=== PATIENT | male | born 1995 | race Caucasian/White ===

== ENCOUNTER 2017-09-06 10:29 | Inpatient (IN) | payer MEDICARE ==
--- NOTE | 2017-09-06 14:00 | History and Physical Report ---
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 Pt was found to have accelerated hypertension as was sent to [facility] for evaluation. Pt seen and evaluated upon arrival and was found to have ESRD with Fluid overload as well as hypertensive emergency. Pt treated with IV antihypertensive therapy and serial blood pressure monitoring. Pt denies fever, chills, headache, CP, Palpitations, NVD, syncope,trauma or recent ill contacts. Pt acknowledges noncompliance with renal diet. Nephrology consulted for urgent dialysis. Past History Past Medical History: ESRD, hypertension Past Surgical History: Other (right chest permacath) Social history: single. denies: smoking, alcohol abuse Family history: hypertension Medications and Allergies Allergies Allergy/AdvReac Type Severity Reaction Status Date / Time No Known Allergies Allergy Unverified 09/06/17 10:57 Home Medications Medication Instructions Recorded Confirmed Last Taken Type B Complex 11/Folic/C/Biot/Zinc 1 each PO DAILY 09/06/17 09/06/17 Unknown History [Dialyvite with Zinc Tablet] Calcitriol [Rocaltrol] 0.25 mcg PO DAILY 09/06/17 09/06/17 Unknown History Calcium Acetate [Phoslo] 1,334 mg PO TID 09/06/17 09/06/17 Unknown History Carvedilol [Coreg] 25 mg PO BID 09/06/17 09/06/17 Unknown History Docusate Sodium [Colace CAP] 100 mg PO DAILY 09/06/17 09/06/17 Unknown History Ergocalciferol [Vitamin D2] 1 cap PO QWEEK 09/06/17 09/06/17 Unknown History Omeprazole Magnesium [PriLOSEC Otc] 40 mg PO QHS 09/06/17 09/06/17 Unknown History Ondansetron [Zofran TAB] 4 mg PO Q8HR PRN 09/06/17 09/06/17 Unknown History Sodium Bicarbonate 1,300 mg PO BID 09/06/17 09/06/17 Unknown History amLODIPine [Norvasc] 10 mg PO DAILY 09/06/17 09/06/17 Unknown History cloNIDine [Catapres] 0.2 mg PO BID 09/06/17 09/06/17 Unknown History Labetalol [Normodyne TAB] 400 mg PO TID #90 tablet 09/08/17 Unknown Rx Minoxidil [Loniten] 5 mg PO BID #60 tablet 09/08/17 Unknown Rx Review of Systems Constitutional: other (high blood pressure), no weight loss, no weight gain, no fever, no chills Ears, nose, mouth and throat: no ear pain, no ear discharge, no tinnitis, no decreased hearing, no nose pain, no nasal congestion Cardiovascular: no chest pain, no orthopnea, no palpitations, no rapid/ irregular heart beat, no edema, no syncope, no lightheadedness Respiratory: no cough, no cough with sputum, no excessive sputum, no hemoptysis , no shortness of breath Gastrointestinal: no nausea, no vomiting, no diarrhea, no constipation Genitourinary Male: no dysuria, no hematuria, no flank pain, no discharge, no urinary frequency, no urinary hesitancy Rectal: no pain, no incontinence, no bleeding Musculoskeletal: no neck stiffness, no neck pain, no shooting arm pain Integumentary: no rash, no pruritis, no redness, no sores, no wounds, no jaundice Psychiatric: no anxiety, no memory loss, no change in sleep habits, no sleep disturbances, no insomnia, no hypersomnia, no change in appetite, no change in libido Endocrine: no cold intolerance, no heat intolerance, no polyphagia, no excessive thirst Hematologic/Lymphatic: no easy bruising, no easy bleeding Allergic/Immunologic: no urticaria, no allergic rhinitis Exam - Constitutional Vitals: Temp Pulse Resp BP Pulse Ox 98.0 F 64 20 170/106 100 09/06/17 12:47 09/06/17 13:09 09/06/17 12:47 09/06/17 13:09 09/06/17 12:47 General appearance: Present: mild distress - EENT Eyes: Present: PERRL ENT: hearing intact, clear oral mucosa - Neck Neck: Present: supple, normal ROM - Respiratory Respiratory effort: normal Respiratory: bilateral: diminished - Cardiovascular Heart Sounds: Present: S1 & S2. Absent: rub, click - Extremities Extremities: pulses symmetrical, No edema Peripheral Pulses: within normal limits - Abdominal General gastrointestinal: Present: soft, non-tender, non-distended, normal bowel sounds Male genitourinary: Present: normal - Integumentary Integumentary: Present: clear, warm, dry - Musculoskeletal Musculoskeletal: gait normal, strength equal bilaterally - Psychiatric Psychiatric: appropriate mood/affect, intact judgment & insight - Neurologic Neurologic: CNII-XII intact, moves all extremities Results - Labs CBC & Chem 7: 09/06/17 15:14 09/08/17 06:02 Assessment and Plan - Patient Problems (1) ESRD (end stage renal disease) on dialysis Status: Acute Plan to address problem: Monitor uop q shift, Strict I/O, Renal diet, nephrology consulted for dialysis, CMP, (2) Fluid overload Status: Acute Plan to address problem: Strict I/O, monitor uop q shift, supportive care, dialysis as per renal team. (3) Hypertensive emergency Status: Acute Plan to address problem: Monitor bp q shift, IV hydralazine prn, continum medical management, resume home medication (4) DVT prophylaxis Status: Acute
[2017-09-06] MEDS ORDERED: PROVENTIL IH PRN (14:01)
[2017-09-06] MEDS ORDERED: TYLENOL PO PRN (14:01)
[2017-09-06] MEDS ORDERED: ZOFRAN IV PRN (14:01)
[2017-09-06] MEDS ORDERED: ZOFRAN PO PRN (14:04)
[2017-09-06] MEDS: APRESOLINE IV PRN (15:40)
--- NOTE | 2017-09-06 15:43 | Consultation ---
History of Present Illness - Reason for Consult Consult date: 09/06/17 end stage renal disease - History of Present Illness Mr. Reggie Paredes is a 22yo gentleman with ESRD on HD MWF who presented to dialysis today for routine treatment. Patient's SBP>200 which did not respond despite Clonidine x 2. He has been admitted for further management. Patient is seen on dialysis. He denies chest pain, SOB, headache, nausea, vomiting. Past History Past Medical History: ESRD, hypertension Past Surgical History: Other (right chest permacath) Social history: single. denies: smoking, alcohol abuse Family history: hypertension Medications and Allergies Allergies Allergy/AdvReac Type Severity Reaction Status Date / Time No Known Allergies Allergy Unverified 09/06/17 10:57 Home Medications Medication Instructions Recorded Confirmed Last Taken Type B Complex 11/Folic/C/Biot/Zinc 1 each PO DAILY 09/06/17 09/06/17 Unknown History [Dialyvite with Zinc Tablet] Calcitriol [Rocaltrol] 0.25 mcg PO DAILY 09/06/17 09/06/17 Unknown History Calcium Acetate [Phoslo] 1,334 mg PO TID 09/06/17 09/06/17 Unknown History Carvedilol [Coreg] 25 mg PO BID 09/06/17 09/06/17 Unknown History Docusate Sodium [Colace] 100 mg PO DAILY 09/06/17 09/06/17 Unknown History Ergocalciferol [Vitamin D2] 1 cap PO QWEEK 09/06/17 09/06/17 Unknown History Labetalol HCl 300 mg PO BID 09/06/17 09/06/17 Unknown History Omeprazole Magnesium [PriLOSEC Otc] 40 mg PO QHS 09/06/17 09/06/17 Unknown History Ondansetron [Zofran TAB] 4 mg PO Q8HR PRN 09/06/17 09/06/17 Unknown History Sodium Bicarbonate 1,300 mg PO BID 09/06/17 09/06/17 Unknown History amLODIPine [Norvasc] 10 mg PO DAILY 09/06/17 09/06/17 Unknown History cloNIDine [Catapres] 0.2 mg PO BID 09/06/17 09/06/17 Unknown History Active Meds: Active Medications Acetaminophen (Tylenol) 650 mg PO Q4H PRN PRN Reason: Pain MILD(1-3)/Fever >100.5/DELAROSA Albuterol (Proventil) 2.5 mg IH Q3HRT PRN PRN Reason: Shortness Of Breath Amlodipine Besylate (Norvasc) 10 mg PO DAILY TASHIA Calcitriol (Rocaltrol) 0.25 mcg PO DAILY TASHIA Calcium Acetate (Phoslo) 1,334 mg PO TIDWM TASHIA Carvedilol (Coreg) 25 mg PO BID TASHIA Clonidine HCl (Catapres) 0.2 mg PO BID TASHIA Docusate Sodium (Colace) 100 mg PO DAILY TASHIA Ergocalciferol (Vitamin D2) 50,000 unit PO QWEEK TASHIA Hydralazine HCl (Apresoline) 10 mg IV Q6HR PRN PRN Reason: Hypertension Labetalol HCl (Normodyne) 300 mg PO BID TASHIA Multivit/Ca Carb/B Cmplx/FA/Prenat (Renal Caps) 1 cap PO QDAY TASHIA Ondansetron HCl (Zofran) 4 mg IV Q8H PRN PRN Reason: N/V unrelieved by Reglan Ondansetron HCl (Zofran) 4 mg PO Q8HR PRN PRN Reason: Nausea Pantoprazole Sodium (Protonix) 40 mg PO QHS TASHIA Sodium Bicarbonate (Sodium Bicarbonate) 1,300 mg PO BID TASHIA Review of Systems All systems: negative Exam - Vital Signs Vital signs: Vital Signs Temp Pulse Resp BP Pulse Ox 98.0 F 62 20 212/134 100 09/06/17 12:47 09/06/17 12:47 09/06/17 12:47 09/06/17 12:47 09/06/17 12:47 - General Appearance General appearance: well-developed, well-nourished EENT: ATNC Respiratory: Clear to Ascultation Heart: regular, S1S2 Gastrointestinal: Present: normal. Absent: tenderness, distended Integumentary: no rash Neurologic: no focal deficit Musculoskeletal: Present: other (no edema) Psychiatric: cooperative Assessment and Plan Impression: * ESRD * Accelerated hypertension * Anemia secondary to ESRD * Secondary hyperparathyroidism Plan: * Hemodialysis today. Continue HD MWF * Continue antiHTN medications * Compliance w/ meds questionable * Epogen TIW prn * Renal diet * Binders with meals
[2017-09-06 16:09] LABS: Basophils # (Auto) 0.1 K/mm3 (0.0-0.1); Basophils % (Auto) 0.9 % (0.0-1.8); Eosinophils # (Auto) 0.1 K/mm3 (0.0-0.4); Eosinophils % (Auto) 1.8 % (0.0-4.3); Hematocrit 35.9 % (35.5-45.6); Lymphocytes # (Auto) 0.9 K/mm3 (1.2-5.4); Lymphocytes % (Auto) 13.9 % (13.4-35.0); Mean Corpuscular HGB Conc 33 % (32-34); Mean Corpuscular Hemoglobin 31 pg (28-32); Mean Corpuscular Volume 93 fl (84-94); Monocytes # (Auto) 0.4 K/mm3 (0.0-0.8); Monocytes % (Auto) 6.8 % (0.0-7.3); Platelet Count 189 K/mm3 (140-440); Red Blood Count 3.86 M/mm3 (3.65-5.03); Red Cell Distribution Width 15.1 % (13.2-15.2)
[2017-09-06 16:28] LABS: Albumin 4.7 g/dL (3.9-5); Calcium 8.5 mg/dL (8.4-10.2)
[2017-09-06] MEDS ORDERED: NACL 0.9% 100 ML IV PRN (18:07)
[2017-09-06] MEDS: HEPARIN IV PRN (19:06)
[2017-09-06] MEDS: CATAPRES PO SCH ×2 (19:19→22:04)
[2017-09-06] MEDS: PHOSLO PO SCH (19:19)
[2017-09-06] MEDS: NORVASC PO SCH (19:19)
[2017-09-06] MEDS: COREG PO SCH ×2 (19:19→22:04)
[2017-09-06] MEDS ORDERED: SODIUM BICARBONATE PO SCH (22:00)
[2017-09-06] MEDS ORDERED: NORMODYNE PO SCH (22:00)
[2017-09-06] MEDS ORDERED: NON-FORMULARY (Omeprazole Magnesium [Prilosec Otc] 40 MG) PO SCH (22:00)
[2017-09-06] MEDS ORDERED: NON-FORMULARY (Labetalol Hcl [Labetalol Hcl] 300 MG) PO SCH (22:00)
[2017-09-06] MEDS: PROTONIX PO SCH (22:04)
[2017-09-07] MEDS: PHOSLO PO SCH ×3 (08:19→17:38)
--- NOTE | 2017-09-07 09:12 | Progress Note ---
Subjective Interval history: Patient was seen today for follow-up, regarding multiple renal related issues Events of 24 hours were noted Patient denies any complaints of chest pain pressure or shortness of breath Interdisciplinary Notes were also reviewed from past 24 hours Vitals labs intake output medications: Reviewed Past medical history: Reviewed Allergies: Reviewed Social history: Reviewed Family history: Reviewed Physical examination Gen.: No acute distress HEENT: Mild pallor nor icterus no uremic order Neck: Supple without any mass or JVD Chest: Clear to auscultation anteriorly Heart: Regular rate and rhythm S1 and S2 heard Abdomen: Soft nontender no suprapubic fullness no masses no renal bruit Extremity: Edema , no peripheral cyanosis Skin: No petechial rashes dry skin Assessment and plan End-stage renal disease: Currently on maintenance hemodialysis Accelerated hypertension: Requires adjustment of medication discontinue duplicate beta delbert Increase the dose of labetalol add minoxidil discontinue clonidine as patient is young and this may have several side effects that he may not like Monitor blood pressure patient needs to modify his diet lifestyle, 3 Hyperkalemia: Would avoid any form of PADMINI inhibitor angiotensin receptor delbert due to history of noncompliance with diet lifestyle Patient is high risk in terms of adverse outcome due to uncontrolled hypertension and should be discharged when his blood pressure is consistently under 150 Some of it is also resulting from noncompliance we'll check aldosterone and plasma renin level today Anemia in end-stage renal disease: To monitor and follow Secondary hyperparathyroidism check phosphorus and PTH level history of poor compliance with diet lifestyle eating fast food Had a detailed discussion with patient about renal care plan, Renal prognosis currently is guarded Significant lab finding were discussed with patient unexplained and simple Congolese Patient does have good understanding about renal related issues We'll continue to follow and make recommendation from renal standpoint Objective - Vital Signs Vital signs: Vital Signs - 12hr 09/06/17 09/06/17 09/06/17 21:52 22:00 22:03 Temperature Pulse Rate 85 Respiratory 20 Rate Blood Pressure 178/121 O2 Sat by Pulse 100 99 Oximetry 09/06/17 09/07/17 09/07/17 22:04 00:32 04:08 Temperature 98.3 F 98.1 F Pulse Rate 85 69 70 Respiratory 20 18 Rate Blood Pressure 178/121 147/102 139/88 O2 Sat by Pulse 99 99 Oximetry 09/07/17 07:48 Temperature 98.4 F Pulse Rate 84 Respiratory 20 Rate Blood Pressure 142/93 O2 Sat by Pulse 98 Oximetry - Lab 09/06/17 15:14 09/06/17 15:14 Most recent lab results Calcium 8.5 mg/dL (8.4-10.2) 09/06/17 15:14
[2017-09-07] MEDS: ROCALTROL PO SCH (09:57)
[2017-09-07] MEDS: COLACE PO SCH (09:57)
[2017-09-07] MEDS: Renal Caps PO SCH (09:57)
[2017-09-07] MEDS: NORVASC PO SCH (09:58)
[2017-09-07] MEDS ORDERED: NON-FORMULARY (B Complex 11/Folic/C/Biot/Zinc [Dialyvite With Zinc Tablet] 1 EACH) PO SCH (10:00)
[2017-09-07] MEDS ORDERED: LONITEN PO SCH (10:00)
[2017-09-07] MEDS: NORMODYNE PO SCH ×2 (12:43→20:03)
[2017-09-07] MEDS ORDERED: NORMODYNE PO SCH (14:00)
--- NOTE | 2017-09-07 19:32 | Progress Note ---
Assessment and Plan Assessment and plan: --Hypertensive urgency; The patient is moderate control, continue current antihypertensives and when necessary medications --End-stage renal disease; on hemodialysis per schedule Nephrology following --DVT prophylaxis; heparin the new dose Closely monitor the patient and adjust management as needed Plan of care discussed with the patient and the nurse History Interval history: Patient seen and examined medical records reviewed No new events reported by the nursing staff Patient's blood pressure moderate control Receiving hemodialysis per schedule Patient has no new complaints Vital signs reviewed Hospitalist Physical - Constitutional Vitals: Temp Pulse Resp BP Pulse Ox 98.7 F 74 20 148/91 99 09/07/17 11:35 09/07/17 11:35 09/07/17 11:35 09/07/17 12:43 09/07/17 11:35 General appearance: Present: no acute distress, well-nourished - EENT Eyes: Present: PERRL, EOM intact - Neck Neck: Present: supple, normal ROM - Respiratory Respiratory effort: normal Respiratory: bilateral: diminished, negative: rales, rhonchi, wheezing - Cardiovascular Rhythm: regular Heart Sounds: Present: S1 & S2 - Extremities Extremities: no ischemia, No edema - Abdominal General gastrointestinal: soft, non-tender, non-distended, normal bowel sounds - Integumentary Integumentary: Present: clear, warm - Psychiatric Psychiatric: appropriate mood/affect, cooperative Results - Labs CBC & Chem 7: 09/06/17 15:14 09/06/17 15:14 Labs: Laboratory Last Values WBC 6.1 K/mm3 (4.5-11.0) 09/06/17 15:14 RBC 3.86 M/mm3 (3.65-5.03) 09/06/17 15:14 Hgb 12.0 gm/dl (11.8-15.2) 09/06/17 15:14 Hct 35.9 % (35.5-45.6) 09/06/17 15:14 MCV 93 fl (84-94) 09/06/17 15:14 MCH 31 pg (28-32) 09/06/17 15:14 MCHC 33 % (32-34) 09/06/17 15:14 RDW 15.1 % (13.2-15.2) 09/06/17 15:14 Plt Count 189 K/mm3 (140-440) 09/06/17 15:14 Lymph % (Auto) 13.9 % (13.4-35.0) 09/06/17 15:14 [facility] % (Auto) 6.8 % (0.0-7.3) 09/06/17 15:14 Eos % (Auto) 1.8 % (0.0-4.3) 09/06/17 15:14 Baso % (Auto) 0.9 % (0.0-1.8) 09/06/17 15:14 Lymph # 0.9 K/mm3 (1.2-5.4) L 09/06/17 15:14 [facility] # 0.4 K/mm3 (0.0-0.8) 09/06/17 15:14 Eos # 0.1 K/mm3 (0.0-0.4) 09/06/17 15:14 Baso # 0.1 K/mm3 (0.0-0.1) 09/06/17 15:14 Seg Neutrophils % 76.6 % (40.0-70.0) H 09/06/17 15:14 Seg Neutrophils # 4.7 K/mm3 (1.8-7.7) 09/06/17 15:14 Sodium 140 mmol/L (137-145) 09/06/17 15:14 Potassium 5.7 mmol/L (3.6-5.0) H 09/06/17 15:14 Chloride 97.3 mmol/L (98-107) L 09/06/17 15:14 Carbon Dioxide 23 mmol/L (22-30) 09/06/17 15:14 Anion Gap 25 mmol/L 09/06/17 15:14 BUN 94 mg/dL (9-20) H 09/06/17 15:14 Creatinine 10.7 mg/dL (0.8-1.5) H 09/06/17 15:14 Estimated GFR 6 ml/min 09/06/17 15:14 BUN/Creatinine Ratio 9 % 09/06/17 15:14 Glucose 119 mg/dL (75-100) H 09/06/17 15:14 Calcium 8.5 mg/dL (8.4-10.2) 09/06/17 15:14 Total Bilirubin 0.30 mg/dL (0.1-1.2) 09/06/17 15:14 AST 9 units/L (5-40) 09/06/17 15:14 ALT 13 units/L (7-56) 09/06/17 15:14 Alkaline Phosphatase 95 units/L (35-129) 09/06/17 15:14 Total Protein 6.5 g/dL (6.3-8.2) 09/06/17 15:14 Albumin 4.7 g/dL (3.9-5) 09/06/17 15:14 Albumin/Globulin Ratio 2.6 % 09/06/17 15:14
[2017-09-07] MEDS: PROTONIX PO SCH (23:37)
[2017-09-08 07:05] LABS: Calcium 8.5 mg/dL (8.4-10.2)
[2017-09-08] MEDS: NORMODYNE PO SCH ×2 (08:25→14:25)
[2017-09-08] MEDS: PHOSLO PO SCH ×2 (08:39→12:26)
[2017-09-08] MEDS ORDERED: NACL 0.9% 100 ML IV PRN ×2 (09:12→10:16)
[2017-09-08] MEDS: COLACE PO SCH (10:25)
[2017-09-08] MEDS: NORVASC PO SCH (10:25)
[2017-09-08] MEDS: Renal Caps PO SCH (10:26)
[2017-09-08] MEDS: ROCALTROL PO SCH (10:26)
[2017-09-08] MEDS ORDERED: NACL 0.9 (PRIMING MACHINE ONLY DIALYSIS) MC ONE (12:02)
--- NOTE | 2017-09-08 12:06 | Progress Note ---
Assessment and Plan Impression: * ESRD * Accelerated hypertension * Anemia secondary to ESRD * Secondary hyperparathyroidism * Hyperkalemia Plan: * Patient is currently undergoing hemodialysis . Tolerating well * Continue HD MWF * His blood pressure still elevated. Shall increase the dose of his minoxidil to 5 mg twice a day * Compliance w/ meds questionable * Epogen TIW prn * Renal diet * Binders with meals Subjective Date of service: 09/08/17 Interval history: Patient is currently undergoing hemodialysis. Tolerating well. Denies any shortness of breath. No nausea or vomiting Objective - Vital Signs Vital signs: Vital Signs - 12hr 09/08/17 09/08/17 09/08/17 04:00 07:18 10:25 Temperature 97.9 F 97.6 F 98.2 F Pulse Rate 72 78 76 Respiratory 18 20 18 Rate Blood Pressure 145/82 168/101 186/110 O2 Sat by Pulse 98 100 Oximetry 09/08/17 09/08/17 09/08/17 10:30 10:45 11:00 Temperature Pulse Rate 78 71 71 Respiratory Rate Blood Pressure 172/100 174/102 179/108 O2 Sat by Pulse Oximetry 09/08/17 09/08/17 09/08/17 11:15 11:30 11:45 Temperature Pulse Rate 71 70 70 Respiratory Rate Blood Pressure 183/106 199/111 194/113 O2 Sat by Pulse Oximetry - General Appearance General appearance: well-developed, well-nourished, appears stated age EENT: PERRL, mucous membranes moist Neck: no JVD, no thyromegaly, no carotid bruit, supple, other (right IJ PermCath in place) Respiratory: Present: Clear to Ascultation Cardiology: regular, normal heart rate, S1S2, no murmurs Gastrointestinal: normal, normoactive bowel sounds Integumentary: no rash, other (no edema) - Lab 09/06/17 15:14 09/08/17 06:02 Most recent lab results Calcium 8.5 mg/dL (8.4-10.2) 09/08/17 06:02
[2017-09-08] MEDS: APRESOLINE IV PRN (12:08)
--- NOTE | 2017-09-08 13:50 | Discharge Summary ---
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 Procedures: HD per scheduled Hospital course: Very pleasant 22-year-old -[place] male patient with significant past medical history of end-stage renal disease on hemodialysis 3 times a week hypertension was admitted through emergency room with uncontrolled blood pressures with systolic blood pressures more than 200s, patient is on multiple anti-hypertensives Admitted to the hospital symptomatically managed, evaluated by nephrology, underwent hemodialysis per schedule Blood pressure medications were optimized and patient's symptoms significantly improved Today patient received hemodialysis, tolerated well No new complaints, blood pressures significantly improved Physical examination done by me prior to discharge is unremarkable Patient is hemodynamically and clinically stable for discharge And follow up with nephrology and hemodialysis per schedule Discharge Diagnosis: --Hypertensive urgency; improved --History of hypertension --End-stage renal disease; on hemodialysis --Anemia of chronic kidney disease Disposition: TO HOME OR SELFCARE Time spent for discharge: 32 min Core Measure Documentation - Palliative Care Palliative Care/ Comfort Measures: Not Applicable - Core Measures Any of the following diagnoses?: none Exam - Constitutional Vitals: Temp Pulse Resp BP Pulse Ox 98.2 F 85 18 169/82 100 09/08/17 10:25 09/08/17 13:15 09/08/17 10:25 09/08/17 13:15 09/08/17 07:18 General appearance: Present: no acute distress, well-nourished - EENT Eyes: Present: PERRL, EOM intact - Neck Neck: Present: supple, normal ROM - Respiratory Respiratory effort: normal Respiratory: negative: rales, rhonchi, wheezing - Cardiovascular Rhythm: regular Heart Sounds: Present: S1 & S2 - Extremities Extremities: no ischemia, No edema - Abdominal General gastrointestinal: Present: soft, non-tender, non-distended, normal bowel sounds - Integumentary Integumentary: Present: clear, warm - Musculoskeletal Musculoskeletal: strength equal bilaterally - Psychiatric Psychiatric: appropriate mood/affect, cooperative - Neurologic Neurologic: CNII-XII intact, moves all extremities Plan Activity: no restrictions Diet: renal Additional Instructions: F/U renal /HD per schedule Follow up with: CRISTHIAN LOMAX MD [Primary Care Provider] - 7 Days Forms: Work/School Release Form Prescriptions: Labetalol [Normodyne TAB] 400 mg PO TID #90 tablet Minoxidil [Loniten] 5 mg PO BID #60 tablet
[2017-09-08 14:41] VITALS: BP 171/92
[2017-09-08] MEDS: HEPARIN IV PRN (15:05)
[2017-09-08] MEDS ORDERED: LONITEN PO SCH (22:00)
[2017-09-10] MEDS ORDERED: VITAMIN D2 PO SCH (10:00)
== END 2017-09-08 15:45 | disposition home or self-care (01) | DRG 304 ==
LOC: UNDOADMIN 10:29 → 3A 10:29
PROVIDERS: ADMIT Hospitalist; ATTEND Internal Medicine
PROC: 5A1D70Z Performance of Urinary Filtration, Intermittent, Less than 6 Hours Per Day (ICD-10-PCS; principal; 2017-09-06)
PROC: 5A1D70Z Performance of Urinary Filtration, Intermittent, Less than 6 Hours Per Day (ICD-10-PCS; 2017-09-08)
DX: I16.0 Hypertensive urgency (principal); N18.6 End stage renal disease; N25.81 Secondary hyperparathyroidism of renal origin; E87.70 Fluid overload, unspecified; E87.5 Hyperkalemia; I12.0 Hypertensive chronic kidney disease with stage 5 chronic kidney disease or end stage renal disease; D63.1 Anemia in chronic kidney disease; Z82.49 Family history of ischemic heart disease and other diseases of the circulatory system; Z79.899 Other long term (current) drug therapy; Z99.2 Dependence on renal dialysis
CPT/HCPCS: 36415; 80048; 80053; 85025; J0360; J1644; J7030

== ENCOUNTER 2021-02-12 07:25 | Emergency (ER) | payer MEDICARE ==
--- NOTE | 2021-02-12 10:04 | Emergency Department Report ---
<MADELINE RAMOS - Last Filed: 02/12/21 19:13> ED General Adult HPI - General Chief complaint: High BP Stated complaint: HIGHBLOOD PRESSURE,FEVER Time Seen by Provider: 02/12/21 09:48 Source: patient Mode of arrival: Ambulatory Limitations: No Limitations - History of Present Illness Initial comments: 25-year-old male with a past medical history of end-stage renal disease currently on hemodialysis Wednesdays and Fridays was sent to the ER today from the dialysis clinic because he had a temperature at the clinic of 101. He was not given any tylenol or ibuprofen. Patient admits that he has had a cold since yesterday. He states that is mainly runny nose and nasal congestion but he denies any cough, wheezing, or shortness of breath and he denies any fever at home. He denies any generalized body aches. He denies any GI or symptoms. He states that currently other than his cold he feels fine. His blood pressure was noted to be elevated and he reports that the dialysis clinic was also concerned about his elevated blood pressure but he admitted that he had not taken his blood pressure medication this morning. He denies any headache, dizziness, chest pain, numbness, tingling, focal weakness or any additional symptoms. MD Complaint: Fever at the dialysis clinic - Related Data Home Medications Medication Instructions Recorded Confirmed Last Taken B Complex 11/Folic/C/Biot/Zinc 1 each PO DAILY 09/06/17 09/06/17 Unknown [Dialyvite with Zinc Tablet] Calcium Acetate [Phoslo] 1,334 mg PO TID 09/06/17 09/06/17 Unknown Docusate Sodium [Colace CAP] 100 mg PO DAILY 09/06/17 09/06/17 Unknown Ergocalciferol [Vitamin D2] 1 cap PO QWEEK 09/06/17 09/06/17 Unknown Omeprazole Magnesium [PriLOSEC Otc] 40 mg PO QHS 09/06/17 09/06/17 Unknown Ondansetron [Zofran TAB] 4 mg PO Q8HR PRN 09/06/17 09/06/17 Unknown Sodium Bicarbonate 1,300 mg PO BID 09/06/17 09/06/17 Unknown amLODIPine 10 mg PO DAILY 09/06/17 09/06/17 Unknown calcitrioL [Rocaltrol] 0.25 mcg PO DAILY 09/06/17 09/06/17 Unknown carvediloL [Coreg] 25 mg PO BID 09/06/17 09/06/17 Unknown cloNIDine [Catapres] 0.2 mg PO BID 09/06/17 09/06/17 Unknown Previous Rx's Medication Instructions Recorded Last Taken Type labetaloL [Labetalol 200mg TAB] 400 mg PO TID #90 tablet 09/08/17 Unknown Rx minoxidiL [Loniten] 5 mg PO BID #60 tablet 09/08/17 Unknown Rx Allergies Allergy/AdvReac Type Severity Reaction Status Date / Time No Known Allergies Allergy Unverified 09/06/17 10:57 ED Review of Systems Comment: All other systems reviewed and negative Constitutional: fever ENT: congestion, other (rhinorrhea ) Respiratory: denies: cough, shortness of breath, SOB with exertion, SOB at rest, wheezing Gastrointestinal: denies: abdominal pain, nausea, vomiting, diarrhea, constipation, hematemesis, melena, hematochezia Genitourinary: denies: urgency, dysuria, frequency, hematuria, discharge, testicular pain, testicular mass Musculoskeletal: denies: back pain, joint swelling, arthralgia, myalgia Skin: denies: rash, lesions, change in color, change in hair/nails, pruritus Neurological: denies: headache, weakness, numbness, paresthesias, confusion, ab normal gait, vertigo Psychiatric: denies: anxiety, depression, auditory hallucinations, visual hallucinations, homicidal thoughts, suicidal thoughts Hematological/Lymphatic: denies: easy bleeding, easy bruising, swollen glands ED Past Medical Hx - Past Medical History Previous Medical History?: Yes Hx Hypertension: Yes Hx Renal Disease: Yes (diaylsis) - Surgical History Past Surgical History?: Yes Additional Surgical History: fistual placement - Social History Smoking Status: Never Smoker - Medications Home Medications: Home Medications Medication Instructions Recorded Confirmed Last Taken Type B Complex 11/Folic/C/Biot/Zinc 1 each PO DAILY 09/06/17 09/06/17 Unknown History [Dialyvite with Zinc Tablet] Calcium Acetate [Phoslo] 1,334 mg PO TID 09/06/17 09/06/17 Unknown History Docusate Sodium [Colace CAP] 100 mg PO DAILY 09/06/17 09/06/17 Unknown History Ergocalciferol [Vitamin D2] 1 cap PO QWEEK 09/06/17 09/06/17 Unknown History Omeprazole Magnesium [PriLOSEC Otc] 40 mg PO QHS 09/06/17 09/06/17 Unknown History Ondansetron [Zofran TAB] 4 mg PO Q8HR PRN 09/06/17 09/06/17 Unknown History Sodium Bicarbonate 1,300 mg PO BID 09/06/17 09/06/17 Unknown History amLODIPine 10 mg PO DAILY 09/06/17 09/06/17 Unknown History calcitrioL [Rocaltrol] 0.25 mcg PO DAILY 09/06/17 09/06/17 Unknown History carvediloL [Coreg] 25 mg PO BID 09/06/17 09/06/17 Unknown History cloNIDine [Catapres] 0.2 mg PO BID 09/06/17 09/06/17 Unknown History labetaloL [Labetalol 200mg TAB] 400 mg PO TID #90 tablet 09/08/17 Unknown Rx minoxidiL [Loniten] 5 mg PO BID #60 tablet 09/08/17 Unknown Rx ED Physical Exam - General Limitations: No Limitations General appearance: alert, in no apparent distress - Head Head exam: Present: atraumatic, normocephalic, normal inspection - Eye Eye exam: Present: normal appearance, PERRL, EOMI Pupils: Present: normal accommodation - ENT ENT exam: Present: normal exam, mucous membranes moist, TM's normal bilaterally - Neck Neck exam: Present: normal inspection, full ROM. Absent: meningismus - Respiratory Respiratory exam: Present: normal lung sounds bilaterally. Absent: respiratory distress, wheezes, rales, rhonchi - Cardiovascular Cardiovascular Exam: Present: regular rate, normal rhythm, normal heart sounds - GI/Abdominal GI/Abdominal exam: Present: soft. Absent: distended, tenderness, guarding, rebound - Neurological Exam Neurological exam: Present: alert, oriented X3, CN II-XII intact, normal gait - Psychiatric Psychiatric exam: Present: normal affect, normal mood - Skin Skin exam: Present: intact ED Medical Decision Making - Medical Decision Making 25-year-old male with a past medical history of end-stage renal disease currently on hemodialysis Wednesdays and Fridays was sent to the ER today from the dialysis clinic because he had a temperature at the clinic of 101. He was not given any tylenol or ibuprofen. Patient admits that he has had a cold since yesterday. He states that is mainly runny nose and nasal congestion but he denies any cough, wheezing, or shortness of breath and he denies any fever at home. He denies any generalized body aches. He denies any GI. He states that he is an anuric due to his ESRD. he states that currently other than his cold he feels fine. His blood pressure was noted to be elevated and he reports that the dialysis clinic was also concerned about his elevated blood pressure but he admitted that he had not taken his blood pressure medication this morning. He denies any headache, dizziness, chest pain, numbness, tingling, focal weakness or any additional symptoms. Patient is well-appearing, not toxic and not in any acute distress. He is mentally stable and neurologically intact with a normal gait. He appears well- hydrated he is currently afebrile. He was hypertensive with a blood pressure of 193/133 at triage after taking his own medication while in the waiting room his blood pressure has improved. I did call his dialysis clinic, [facility] to find out what exactly they were concerned about. Apparently they wanted patient to have a COVID-19 test but informed him that we do not do COVID-19 test on patients were being discharged from the hospital. Patient will have to get a COVID-19 test at one of the local urgent cares or outlying clinics or even one of the pharmacies. Patient is also concerned about getting his dialysis done as he typically has a rigid regimen of Wednesdays and Fridays. The nurse at the clinic reports that once patient gets a negative COVID-19 test, he can call the clinic and they can direct him to another clinic where he will be able to get the dialysis if he is unable to get it done today. Discussed all these instructions with patient. He expressed understanding and agree with plan. Patient was stable at time of discharge. ED Disposition Clinical Impression: ESRD (end stage renal disease) on dialysis, Elevated blood pressure reading, History of fever Disposition: - TO HOME OR SELFCARE Is pt being admited?: No Does the pt Need Aspirin: No Condition: Stable Instructions: Viral Respiratory Infection, [id number] Additional Instructions: I recommend that you get an outpatient rapid COVID test today. If your test is negative, then you can call [facility] and they can direct you as to where to go to get your next dialysis. Recommend that you take Zyrtec/or Claritin and Flonase from [id number] to help with your URI symptoms. Return to the ER if your symptoms changes or worsens in any way. Referrals: PRIMARY CARE, [Primary Care Provider] - 3-5 Days Time of Disposition: 10:08 <JARRELL IRELAND - Last Filed: 02/14/21 11:01> ED Review of Systems ROS: Stated complaint: HIGHBLOOD PRESSURE,FEVER Other details as noted in HPI ED Course Vital Signs 02/12/21 02/12/21 08:20 10:08 Temperature 98.9 F Pulse Rate 108 H 91 H Respiratory 18 17 Rate Blood Pressure 192/133 167/107 [Left] O2 Sat by Pulse 98 97 Oximetry Critical care attestation.: If time is entered above; I have spent that time in minutes in the direct care of this critically ill patient, excluding procedure time. ED Disposition Is pt being admited?: No Does the pt Need Aspirin: No
[2021-02-12 10:08] VITALS: BP 167/107
== END 2021-02-12 10:15 | disposition home or self-care (01) ==
LOC: ED 07:25
DX: I12.0 Hypertensive chronic kidney disease with stage 5 chronic kidney disease or end stage renal disease (principal); N18.6 End stage renal disease; R03.0 Elevated blood-pressure reading, without diagnosis of hypertension; Z87.898 Personal history of other specified conditions; Z99.2 Dependence on renal dialysis; Z79.899 Other long term (current) drug therapy; Z98.890 Other specified postprocedural states

== ENCOUNTER 2021-03-25 23:34 | Emergency (ER) | payer MEDICARE ==
--- NOTE | 2021-03-26 00:08 | Event Note ---
ED Screening Note Date of service: 03/26/21 Time: 00:07 ED Screening Note: 26-year-old male patient with history of end-stage renal disease on dialysis secondary to uncontrolled hypertension presents to the emergency department via EMS with complaints of lower abdominal pain starting 3 days ago. Patient's last dialysis session was on 03/22/2021. No history of prior abdominal surgeries. General: Awake, appropriately interactive, no acute distress. Neck: Supple. Full range of motion intact. Cardiovascular: Normal peripheral perfusion. Pulmonary: No respiratory distress. Patient is speaking normally without use of accessory muscles. Skin: No apparent rashes or lesions. Fistula to left forearm. Abdomen: Soft, nondistended. Diffuse lower abdominal tenderness. Neurological: No facial asymmetry. Speech is clear. Follows commands. Patient is alert and oriented. Musculoskeletal: Moves all four extremities spontaneously with normal range of motion. Psych: Cooperative. Appropriate mood and affect. I have greeted and performed a focused rapid initial assessment of this patient. A comprehensive ED assessment and evaluation of the patient, analysis of all test results, and completion of the medical decision-making process will be conducted by additional ED providers. This initial assessment/diagnostic orders/clinical plan/treatment(s) is/are subject to change based on patients health status, clinical progression and re-assessment. Further treatment and workup at subsequent clinical provider's discretion. Patient/guardian urged not to elope from the ED as their condition may be serious if not clinically assessed and managed.
[2021-03-26] MEDS ORDERED: ONDANSETRON 4 MG/2 ML INJ IV ONE (00:27)
[2021-03-26] MEDS ORDERED: HYDROmorphone 1 MG/1 ML INJ IV ONE (00:27)
--- NOTE | 2021-03-26 00:28 | Emergency Department Report ---
ED Abdominal Pain HPI - General Chief Complaint: Abdominal Pain Stated Complaint: ABD PAIN PUI?: No Time Seen by Provider: 03/26/21 00:25 Source: patient Mode of arrival: Ambulatory Limitations: No Limitations - History of Present Illness Initial Comments: Patient is a 26-year-old male who presents emergency room with complaints of lower abdominal pain. Patient states he has right and left lower quadrant pain. But states the right is worse. Patient also complains of constipation. Patient states his symptoms started 2 days ago. Patient dates his symptoms are worsening. Patient denies nausea vomiting. Patient denies diarrhea. Patient denies fever and chills. Patient states the pain is a 7 out of 10. Patient states the pain is severe. Patient denies recent travel. Patient denies recent international travel. Patient denies exposure to the novel coronavirus. Patient denies sick contacts. Patient denies fever and chills. Patient denies cough. Patient denies diarrhea. Patient denies coming in contact with anybody with symptoms of the novel coronavirus. Patient states he is vaccinated against COVID-19. Patient states he has a past medical history of hypertension and end-stage renal disease on dialysis. MD Complaint: abdominal pain -: Sudden, days(s) Location: RLQ Radiation: none Migration to: no migration Severity: severe Severity scale (0 -10): 7 Quality: stabbing Consistency: constant Improves With: rest Worsens With: movement Associated Symptoms: constipation. denies: nausea, vomiting, diarrhea, fever, chills, dysuria, hematemesis, hematochezia, melena, anorexia, syncope - Related Data Home Medications Medication Instructions Recorded Confirmed Last Taken B Complex 11/Folic/C/Biot/Zinc 1 each PO DAILY 09/06/17 09/06/17 Unknown [Dialyvite with Zinc Tablet] Calcium Acetate [Phoslo] 1,334 mg PO TID 09/06/17 09/06/17 Unknown Docusate Sodium [Colace CAP] 100 mg PO DAILY 09/06/17 09/06/17 Unknown Ergocalciferol [Vitamin D2] 1 cap PO QWEEK 09/06/17 09/06/17 Unknown Omeprazole Magnesium [PriLOSEC Otc] 40 mg PO QHS 09/06/17 09/06/17 Unknown Ondansetron [Zofran TAB] 4 mg PO Q8HR PRN 09/06/17 09/06/17 Unknown Sodium Bicarbonate 1,300 mg PO BID 09/06/17 09/06/17 Unknown amLODIPine 10 mg PO DAILY 09/06/17 09/06/17 Unknown calcitrioL [Rocaltrol] 0.25 mcg PO DAILY 09/06/17 09/06/17 Unknown carvediloL [Coreg] 25 mg PO BID 09/06/17 09/06/17 Unknown cloNIDine [Catapres] 0.2 mg PO BID 09/06/17 09/06/17 Unknown Previous Rx's Medication Instructions Recorded Last Taken Type labetaloL [Labetalol 200mg TAB] 400 mg PO TID #90 tablet 09/08/17 Unknown Rx minoxidiL [Loniten] 5 mg PO BID #60 tablet 09/08/17 Unknown Rx Ondansetron [Zofran Odt] 4 mg PO Q6HR PRN #20 tab.rapdis 03/26/21 Unknown Rx Allergies Allergy/AdvReac Type Severity Reaction Status Date / Time No Known Allergies Allergy Unverified 09/06/17 10:57 ED Review of Systems ROS: Stated complaint: ABD PAIN Other details as noted in HPI Constitutional: denies: chills, fever Eyes: denies: eye pain, eye discharge, vision change ENT: denies: ear pain, throat pain Respiratory: denies: cough, shortness of breath, wheezing Cardiovascular: denies: chest pain, palpitations Endocrine: no symptoms reported Gastrointestinal: as per HPI, abdominal pain, constipation. denies: nausea, diarrhea Genitourinary: denies: urgency, dysuria Musculoskeletal: denies: back pain, joint swelling, arthralgia Skin: denies: rash, lesions Neurological: denies: headache, weakness, paresthesias Psychiatric: denies: anxiety, depression Hematological/Lymphatic: denies: easy bleeding, easy bruising ED Past Medical Hx - Past Medical History Previous Medical History?: Yes Hx Hypertension: Yes Hx Renal Disease: Yes (diaylsis MW) - Surgical History Past Surgical History?: Yes Additional Surgical History: fistual placement - Family History Family history: no significant - Social History Smoking Status: Never Smoker Substance Use Type: None - Medications Home Medications: Home Medications Medication Instructions Recorded Confirmed Last Taken Type B Complex 11/Folic/C/Biot/Zinc 1 each PO DAILY 09/06/17 09/06/17 Unknown History [Dialyvite with Zinc Tablet] Calcium Acetate [Phoslo] 1,334 mg PO TID 09/06/17 09/06/17 Unknown History Docusate Sodium [Colace CAP] 100 mg PO DAILY 09/06/17 09/06/17 Unknown History Ergocalciferol [Vitamin D2] 1 cap PO QWEEK 09/06/17 09/06/17 Unknown History Omeprazole Magnesium [PriLOSEC Otc] 40 mg PO QHS 09/06/17 09/06/17 Unknown History Ondansetron [Zofran TAB] 4 mg PO Q8HR PRN 09/06/17 09/06/17 Unknown History Sodium Bicarbonate 1,300 mg PO BID 09/06/17 09/06/17 Unknown History amLODIPine 10 mg PO DAILY 09/06/17 09/06/17 Unknown History calcitrioL [Rocaltrol] 0.25 mcg PO DAILY 09/06/17 09/06/17 Unknown History carvediloL [Coreg] 25 mg PO BID 09/06/17 09/06/17 Unknown History cloNIDine [Catapres] 0.2 mg PO BID 09/06/17 09/06/17 Unknown History labetaloL [Labetalol 200mg TAB] 400 mg PO TID #90 tablet 09/08/17 Unknown Rx minoxidiL [Loniten] 5 mg PO BID #60 tablet 09/08/17 Unknown Rx Ondansetron [Zofran Odt] 4 mg PO Q6HR PRN #20 tab.rapdis 03/26/21 Unknown Rx ED Physical Exam - General Limitations: No Limitations General appearance: alert, in no apparent distress - Head Head exam: Present: atraumatic, normocephalic - Eye Eye exam: Present: normal appearance - ENT ENT exam: Present: mucous membranes moist - Neck Neck exam: Present: normal inspection - Respiratory Respiratory exam: Present: normal lung sounds bilaterally. Absent: respiratory distress, wheezes, rales - Cardiovascular Cardiovascular Exam: Present: regular rate, normal rhythm. Absent: systolic murmur, diastolic murmur, rubs, gallop - GI/Abdominal GI/Abdominal exam: Present: soft, tenderness (Right lower quadrant tenderness to palpation.), normal bowel sounds - Rectal Rectal exam: Present: deferred - Extremities Exam Extremities exam: Present: normal inspection - Back Exam Back exam: Present: normal inspection - Neurological Exam Neurological exam: Present: alert, oriented X3 - Psychiatric Psychiatric exam: Present: normal affect, normal mood - Skin Skin exam: Present: warm, dry, intact, normal color. Absent: rash ED Course Vital Signs 03/26/21 03/26/21 00:06 04:11 Temperature 98.3 F Pulse Rate 85 Respiratory 20 Rate Blood Pressure 202/132 176/85 [Right] O2 Sat by Pulse 100 Oximetry - Reevaluation(s) Reevaluation #1: Patient states his pain is better. Patient states he is not having any nausea. 03/26/21 01:58 Reevaluation #2: I discussed all results and clinical findings with patient. I discussed plan of care with patient. Patient agrees with plan of care. Patient is stable for discharge. Patient will be discharged home. Patient given discharge instructions. Patient voiced understanding of discharge instructions. Patient's blood pressure improved on its own. Patient will need to continue all medications and dialysis. Patient will need to monitor the blood pressure. 03/26/21 04:23 ED Medical Decision Making - Lab Data Result diagrams: 03/26/21 00:21 03/26/21 00:21 - Radiology Data Radiology results: report reviewed CT ABDOMEN AND PELVIS WITHOUT IV CONTRAST INDICATION: Pt complains of R.L.Q. abdominal pain with constipation. COMPARISON: None available. TECHNIQUE: All CT scans at this facility use dose modulation, automated exposure control, iterative reconstruction or weight based dosing, when appropriate, to reduce radiation dose to as low as reasonably achievable. FINDINGS: Lung Bases: No significant abnormality. Skeletal System: No acute abnormality. The bones are diffusely sclerotic. ABDOMEN: Liver: No significant abnormality. Gallbladder: No significant abnormality. Bile Ducts: No significant abnormality. Pancreas: No significant abnormality. Spleen: No significant abnormality. Adrenals: No significant abnormality. Right Kidney: Very small with thin cortex. Left Kidney: There is small with thin cortex. Upper GI tract: Stomach and duodenum are unremarkable. Multiple loops of proximal to mid jejunum are thickened with adjacent mesenteric edema/stranding.. Lymph Nodes: No significant adenopathy. Aorta: No significant abnormality. Additional Findings: There is trace free fluid which is predominantly perihepatic and perisplenic. PELVIS: Colon: No acute abnormality. Diverticulosis is noted. Urinary Bladder and Distal Ureters: Decompressed. Appendix: No significant abnormality. Lymph Nodes: No significant adenopathy. Additional Findings: There is mild free fluid in the pelvis. IMPRESSION: 1. Enteritis involving proximal to mid jejunum. No bowel obstruction. The appendix is normal. 2. Mild ascites. 3. The kidneys are small, this could be general or due to atrophy. 4. The bones are diffusely sclerotic which could be seen in the setting of metabolic disorders. - Medical Decision Making Patient is a 6-year-old male presents emergency room with lower abdominal pain. Right lower quadrant greater than left lower quadrant. Patient states the pain is worsening. Patient had labs done showed multiple abnormalities due to end- stage renal disease. Patient is history of end-stage renal disease and is compliant with dialysis. Patient had dialysis yesterday. Patient had a CT scan to rule out appendicitis and the CT shows gastroenteritis patient not require any further emergency medical service. Patient not require inpatient service. Patient stable for discharge. Patient discharged home. Patient's blood pressure was initially high and the patient blood pressure improved with time and treatment of his pain. - Differential Diagnosis Abdominal pain, gastroenteritis, appendicitis, constipation, obstruction, Critical care attestation.: If time is entered above; I have spent that time in minutes in the direct care of this critically ill patient, excluding procedure time. ED Disposition Clinical Impression: ESRD (end stage renal disease) on dialysis, Gastroenteritis Abdominal pain Qualifiers: Abdominal location: right lower quadrant Qualified Code(s): R10.31 - Right lower quadrant pain Hypertension Qualifiers: Hypertension type: primary hypertension Qualified Code(s): I10 - Essential (primary) hypertension Disposition: 01 HOME / SELF CARE / HOMELESS Is pt being admited?: No Does the pt Need Aspirin: No Condition: Stable Instructions: Viral Gastroenteritis, Adult, [id number], Food Choices to Help Relieve Diarrhea, Adult, Abdominal Pain, Adult, [id number], Hypertension (ED), Hypertension, Adult, [id number] Additional Instructions: Patient to follow-up with primary care in 2 to 3 days. Patient to eat a brat diet. Patient to continue current dietary restrictions per primary care and polytechnic registrar. Patient to continue dialysis. Patient to rest. Patient to increase water. Patient to avoid strenuous exercise or heavy lifting until cleared by SLASHER MACHINE OPERATOR. Patient to take Tylenol as needed for pain. Patient to take meds as directed. Patient to return to the ER if condition worsens, changes or new symptoms arise. Patient to monitor blood pressure at home. Patient to continue all blood pressure medications. Patient be a low-salt diet. Patient to take blood pressure log to all follow-up appointments. Prescriptions: Ondansetron [Zofran Odt] 4 mg PO Q6HR PRN #20 tab.rapdis PRN Reason: Nausea And Vomiting Referrals: PRIMARY CARE, [Primary Care Provider] - 2-3 Days Time of Disposition: 04:24
[2021-03-26 00:45] LABS: Basophils % (Auto) 0.5 % (0.0-1.8); Eosinophils # (Auto) 0.1 K/mm3 (0.0-0.4); Eosinophils % (Auto) 1.4 % (0.0-4.3); Hematocrit 30.4 % (35.5-45.6); Hemoglobin 10.4 gm/dl (11.8-15.2); Lymphocytes # (Auto) 1.5 K/mm3 (1.2-5.4); Lymphocytes % (Auto) 18.6 % (13.4-35.0); Mean Corpuscular HGB Conc 34 % (32-34); Mean Corpuscular Volume 94 fl (84-94); Monocytes # (Auto) 0.7 K/mm3 (0.0-0.8); Platelet Count 200 K/mm3 (140-440); Red Blood Count 3.22 M/mm3 (3.65-5.03); Red Cell Distribution Width 13.7 % (13.2-15.2)
[2021-03-26 01:03] LABS: Albumin 4.5 g/dL (3.9-5); Calcium 8.6 mg/dL (8.4-10.2)
--- NOTE | 2021-03-26 02:57 | Cat Scan Report ---
CT ABDOMEN AND PELVIS WITHOUT IV CONTRAST INDICATION: Pt complains of R.L.Q. abdominal pain with constipation. COMPARISON: None available. TECHNIQUE: All CT scans at this facility use dose modulation, automated exposure control, iterative reconstructi on or weight based dosing, when appropriate, to reduce radiation dose to as low as reasonably achieva ble. FINDINGS: Lung Bases: No significant abnormality. Skeletal System: No acute abnormality. The bones are diffusely sclerotic. ABDOMEN: Liver: No significant abnormality. Gallbladder: No significant abnormality. Bile Ducts: No significant abnormality. Pancreas: No significant abnormality. Spleen: No significant abnormality. Adrenals: No significant abnormality. Right Kidney: Very small with thin cortex. Left Kidney: There is small with thin cortex. Upper GI tract: Stomach and duodenum are unremarkable. Multiple loops of proximal to mid jejunum are thickened with adjacent mesenteric edema/stranding.. Lymph Nodes: No significant adenopathy. Aorta: No significant abnormality. Additional Findings: There is trace free fluid which is predominantly perihepatic and perisplenic. PELVIS: Colon: No acute abnormality. Diverticulosis is noted. Urinary Bladder and Distal Ureters: Decompressed. Appendix: No significant abnormality. Lymph Nodes: No significant adenopathy. Additional Findings: There is mild free fluid in the pelvis. IMPRESSION: 1. Enteritis involving proximal to mid jejunum. No bowel obstruction. The appendix is normal. 2. Mild ascites. 3. The kidneys are small, this could be general or due to atrophy. 4. The bones are diffusely sclerotic which could be seen in the setting of metabolic disorders. Signer Name: Jayy Montero MD Signed: 03/26/2021 2:52 AM Workstation Name: [id number]
[2021-03-26 04:12] VITALS: BP 176/85
== END 2021-03-26 04:48 | disposition home or self-care (01) ==
LOC: ED 23:34
DX: K52.9 Noninfective gastroenteritis and colitis, unspecified (principal); R10.31 Right lower quadrant pain; I12.0 Hypertensive chronic kidney disease with stage 5 chronic kidney disease or end stage renal disease; N18.6 End stage renal disease; Z98.890 Other specified postprocedural states
CPT/HCPCS: 36415; 74176; 80053; 82805; 83690; 83735; 84100; 85025; 96374; 96375; 99284; J1170; J2405

== ENCOUNTER 2021-05-12 07:47 | Inpatient (IN) | payer MEDICARE ==
--- NOTE | 2021-05-12 08:16 | Emergency Department Report ---
HPI - General Chief Complaint: High BP Time Seen by Provider: 05/12/21 07:58 - HPI HPI: Room 2 The patient is a 26-year-old male present with a chief complaint of hypertension. Patient has a history of hypertension and end-stage renal disease and presented today for hemodialysis at his dialysis center when he was found to be hypertensive. The patient reports his blood pressure was 200/100 so he was told that they could not perform hemodialysis. Patient was administered clonidine 0.3 mg and then transferred to the ED for further evaluation. Upon arrival to the ED the patient is normotensive and complains of dizziness. Patient denies headache nausea or vomiting. In the ED the patient was found to be hypoxic to 86% on room air. Patient den ies shortness of breath or cough. Patient states she is not on home O2. Patient states he received his first Moderna Covid vaccination in February but has not yet received his second dose. ED Past Medical Hx - Past Medical History Previous Medical History?: Yes Hx Hypertension: Yes Hx Renal Disease: Yes (diaylsis MWF) - Surgical History Past Surgical History?: Yes Additional Surgical History: Left upper extremity fistula, left chest Vas-Cath - Family History Family history: no significant - Social History Smoking Status: Never Smoker Substance Use Type: None (Denies illicit drug use) - Medications Home Medications: Home Medications Medication Instructions Recorded Confirmed Last Taken Type B Complex 11/Folic/C/Biot/Zinc 1 each PO DAILY 09/06/17 09/06/17 Unknown History [Dialyvite with Zinc Tablet] Calcium Acetate [Phoslo] 1,334 mg PO TID 09/06/17 09/06/17 Unknown History Docusate Sodium [Colace CAP] 100 mg PO DAILY 09/06/17 09/06/17 Unknown History Ergocalciferol [Vitamin D2] 1 cap PO QWEEK 09/06/17 09/06/17 Unknown History Omeprazole Magnesium [PriLOSEC Otc] 40 mg PO QHS 09/06/17 09/06/17 Unknown History Ondansetron [Zofran TAB] 4 mg PO Q8HR PRN 09/06/17 09/06/17 Unknown History Sodium Bicarbonate 1,300 mg PO BID 09/06/17 09/06/17 Unknown History amLODIPine 10 mg PO DAILY 09/06/17 09/06/17 Unknown History calcitrioL [Rocaltrol] 0.25 mcg PO DAILY 09/06/17 09/06/17 Unknown History carvediloL [Coreg] 25 mg PO BID 09/06/17 09/06/17 Unknown History cloNIDine [Catapres] 0.2 mg PO BID 09/06/17 09/06/17 Unknown History labetaloL [Labetalol 200mg TAB] 400 mg PO TID #90 tablet 09/08/17 Unknown Rx minoxidiL [Loniten] 5 mg PO BID #60 tablet 09/08/17 Unknown Rx Ondansetron [Zofran Odt] 4 mg PO Q6HR PRN #20 tab.rapdis 03/26/21 Unknown Rx ED Review of Systems ROS: Stated complaint: HYPERTENSION/BLURR VISION Other details as noted in HPI Constitutional: no symptoms reported. denies: fever Eyes: denies: eye pain ENT: denies: throat pain Respiratory: denies: cough, shortness of breath Cardiovascular: denies: chest pain Endocrine: no symptoms reported Gastrointestinal: denies: nausea, vomiting Musculoskeletal: denies: back pain Neurological: other (Dizziness). denies: headache Physical Exam - Physical Exam Vital Signs: Vital Signs 05/12/21 05/12/21 07:55 08:03 Temperature 98 F Pulse Rate 92 H Respiratory 16 Rate Blood Pressure 126/51 O2 Sat by Pulse 86 88 Oximetry Physical Exam: GENERAL: The patient is well-developed well-nourished male lying on stretcher not appearing to be in acute distress. [] HEENT: Normocephalic. Atraumatic. Extraocular motions are intact. Patient has moist mucous membranes. NECK: Supple. No meningitic signs are noted. Trachea midline CHEST/LUNGS: Faint occasional crackles bilateral bases. There is no respiratory distress noted. HEART/CARDIOVASCULAR: Regular. There is no tachycardia. There is no gallop rub or murmur. ABDOMEN: Abdomen is soft, nontender. Patient has normal bowel sounds. There is no abdominal distention. SKIN: There is no rash. There is no diaphoresis. NEURO: The patient is awake, alert, and oriented. The patient is cooperative. The patient has no focal neurologic deficits. The patient has normal speech. GCS 15. Cranial nerves II through XII grossly intact MUSCULOSKELETAL: There is no evidence of acute injury. ED Course Vital Signs 05/12/21 05/12/21 07:55 08:03 Temperature 98 F Pulse Rate 92 H Respiratory 16 Rate Blood Pressure 126/51 O2 Sat by Pulse 86 88 Oximetry ED Medical Decision Making - Lab Data Result diagrams: 05/12/21 08:16 05/12/21 08:16 - Radiology Data Radiology results: report reviewed (Chest x-ray, CT head), image reviewed (Chest x-ray, CT head) interpreted by me: Chest x-ray-right lower lobe consolidation, no pneumothorax [address] [address] XRay Report Signed Patient: ANJUM TIJERINA MR#: [id number] : 1995 Acct:[id number] Age/Sex: 26 / M ADM Date: 05/12/21 Loc: ED Attending Dr: Ordering Physician: ELOISA HANLEY MD Date of Service: 05/12/21 Procedure(s): XR chest 1V ap Accession Number(s): [id number] cc: ELOISA HANLEY MD Fluoro Time In Minutes: CHEST 1 VIEW INDICATION / CLINICAL INFORMATION: Hypoxia STUDY TIME: 834 COMPARISON: None available. FINDINGS: SUPPORT DEVICES: None HEART / MEDIASTINUM: Mild cardiomegaly, unusual for age LUNGS / PLEURA: Congestive changes and diffuse interstitial probable pulmonary edema is noted. Lung bases show more density which could be part of the congestive process but I am concerned particularly of the possibility of pneumonitis in the right base with asymmetrically prominent density in that area. No pneumothorax. ADDITIONAL FINDINGS: No significant additional findings. Signer Name: Woody Vivar MD Signed: 05/12/2021 8:48 AM Workstation Name: [id number] Transcribed By: GJ Dictated By: Woody Vivar MD Electronically Authenticated By: Woody Vivar MD Signed Date/Time: 05/12/21847 DD/ 6 TD/TT: Print Cancel [address] [address] Cat Scan Report Signed Patient: ANJUM TIJERINA MR#: [id number] : 1995 Acct:[id number] Age/Sex: 26 / M ADM Date: 05/12/21 Loc: ED Attending Dr: Ordering Physician: ELOISA HANLEY MD Date of Service: 05/12/21 Procedure(s): CT head/brain wo con Accession Number(s): [id number] cc: ELOISA HANLEY MD CT head/brain wo con INDICATION: Hypertension, dizziness. TECHNIQUE: Routine CT head without contrast. All CT scans at this location are performed using CT dose reduction for ALARA by means of automated exposure control. COMPARISON: None. FINDINGS: BRAIN / INTRACRANIAL CONTENTS: No acute hemorrhage, mass effect, midline shift, or hydrocephalus. No appreciable acute large territorial or lacunar infarct. There is partial agenesis of corpus callosum. The brain otherwise appears normal for age. ORBITS: No significant abnormality of visualized orbits. SINUSES / MASTOIDS: No significant abnormality of visualized sinuses and mastoid air cells. ADDITIONAL FINDINGS: None. IMPRESSION: 1. No acute findings. 2. 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 Signer Name: Pablo Mitchell MD Signed: 05/12/2021 8:57 AM Workstation Name: [id number] Transcribed By: DENNISE Dictated By: Pbalo Mitchell MD Electronically Authenticated By: Pablo Mitchell MD Signed Date/Time: 05/12/21856 DD/ 5 TD/TT: Print - Differential Diagnosis Volume overload, pneumonia, hypertensive urgency, Covid Critical care attestation.: If time is entered above; I have spent that time in minutes in the direct care of this critically ill patient, excluding procedure time. ED Disposition Clinical Impression: Hypoxia, Hypertensive emergency, Suspected COVID-19 virus infection Disposition: ADMITTED INPATIENT Is pt being admited?: Yes Does the pt Need Aspirin: Yes Condition: Fair Instructions: Hypertension (ED) Time of Disposition: 09:09 (Hospitalist called (Dr. Sanderson))
[2021-05-12 08:28] LABS: Basophils % (Auto) 0.8 % (0.0-1.8); Eosinophils # (Auto) 0.2 K/mm3 (0.0-0.4); Eosinophils % (Auto) 2.8 % (0.0-4.3); Hematocrit 28.3 % (35.5-45.6); Hemoglobin 9.2 gm/dl (11.8-15.2); Lymphocytes # (Auto) 0.8 K/mm3 (1.2-5.4); Lymphocytes % (Auto) 12.7 % (13.4-35.0); Mean Corpuscular HGB Conc 32 % (32-34); Mean Corpuscular Volume 95 fl (84-94); Monocytes # (Auto) 0.3 K/mm3 (0.0-0.8); Monocytes % (Auto) 5.2 % (0.0-7.3); Platelet Count 193 K/mm3 (140-440); Red Blood Count 2.97 M/mm3 (3.65-5.03); Red Cell Distribution Width 14.6 % (13.2-15.2)
[2021-05-12 08:39] LABS: ABG Base Excess 4.5 mmol/L (-2.0-3.0); ABG HCO3 27.7 mmol/L (20.0-26.0); ABG Methemoglobin 0.4 % (0.0-1.5); ABG Oxygen Saturation 86.1 % (95.0-99.0); ABG PCO2 35.5 mm Hg; ABG PH 7.51 pH Units (7.350-7.450); ABG PO2 44.7 mm Hg (80.0-90.0)
[2021-05-12 08:40] LABS: INR 1.03 (0.87-1.13)
[2021-05-12 08:50] LABS: Calcium 8.9 mg/dL (8.4-10.2)
[2021-05-12 08:52] LABS: Creatine Kinase MB 1.9 ng/mL (0.0-4.0)
--- NOTE | 2021-05-12 08:52 | XRay Report ---
CHEST 1 VIEW INDICATION / CLINICAL INFORMATION: Hypoxia STUDY TIME: 834 COMPARISON: None available. FINDINGS: SUPPORT DEVICES: None HEART / MEDIASTINUM: Mild cardiomegaly, unusual for age LUNGS / PLEURA: Congestive changes and diffuse interstitial probable pulmonary edema is noted. Lung b ases show more density which could be part of the congestive process but I am concerned particularly of the possibility of pneumonitis in the right base with asymmetrically prominent density in that are a. No pneumothorax. ADDITIONAL FINDINGS: No significant additional findings. Signer Name: Woody Vivar MD Signed: 05/12/2021 8:48 AM Workstation Name: [id number]
--- NOTE | 2021-05-12 09:01 | Cat Scan Report ---
CT head/brain wo con INDICATION: Hypertension, dizziness. TECHNIQUE: Routine CT head without contrast. All CT scans at this location are performed using CT dos e reduction for ALARA by means of automated exposure control. COMPARISON: None. FINDINGS: BRAIN / INTRACRANIAL CONTENTS: No acute hemorrhage, mass effect, midline shift, or hydrocephalus. No appreciable acute large territorial or lacunar infarct. There is partial agenesis of corpus callosum. The brain otherwise appears normal for age. ORBITS: No significant abnormality of visualized orbits. SINUSES / MASTOIDS: No significant abnormality of visualized sinuses and mastoid air cells. ADDITIONAL FINDINGS: None. IMPRESSION: 1. No acute findings. 2. 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 Signer Name: Pablo Mitchell MD Signed: 05/12/2021 8:57 AM Workstation Name: [id number]
[2021-05-12 09:05] LABS: Chol/HDL Ratio 2.47 %
[2021-05-12] MEDS ORDERED: AZITHROMYCIN/NS 500 MG/250 ML 500 MG/250 ML BAG IV ONE (09:10)
[2021-05-12] MEDS ORDERED: cefTRIAXone/NS 1 GM/50 ML 1 GM/50 ML BAG IV ONE (09:10)
[2021-05-12] MEDS ORDERED: MORPHINE 4 MG/1 ML INJ IV PRN (10:54)
--- NOTE | 2021-05-12 11:07 | History and Physical Report ---
History of Present Illness Date of examination: 05/12/21 Date of admission: 05/12/21 09:19 Chief complaint: volume overload, accel htn History of present illness: 26-year-old male with past medical history of ESRD on HD MWF and hypertension presents with chief complaint of elevated blood pressure. Patient presents today from hemodialysis center because of elevated blood pressure 200/100. The patient was told that he was unable to have hemodialysis performed due to elevated blood pressure. Patient was administered clonidine 0.3 mg and then transferred to the ED for further evaluation. Upon arrival to the ED the patient is normotensive and complains of dizziness. Patient denies headache nausea or vomiting. No headache or visual disturbances. Patient noted to be hypoxic in the ED with saturations 86% on room air. Patient however denies any shortness of breath. No chest pain Past History Past Medical History: ESRD, hypertension Past Surgical History: No surgical history Social history: no significant social history Family history: no significant family history Medications and Allergies Allergies Allergy/AdvReac Type Severity Reaction Status Date / Time No Known Allergies Allergy Unverified 09/06/17 10:57 Home Medications Medication Instructions Recorded Confirmed Last Taken Type B Complex 11/Folic/C/Biot/Zinc 1 each PO DAILY 09/06/17 09/06/17 Unknown History [Dialyvite with Zinc Tablet] Calcium Acetate [Phoslo] 1,334 mg PO TID 09/06/17 09/06/17 Unknown History Docusate Sodium [Colace CAP] 100 mg PO DAILY 09/06/17 09/06/17 Unknown History Ergocalciferol [Vitamin D2] 1 cap PO QWEEK 09/06/17 09/06/17 Unknown History Omeprazole Magnesium [PriLOSEC Otc] 40 mg PO QHS 09/06/17 09/06/17 Unknown History Ondansetron [Zofran TAB] 4 mg PO Q8HR PRN 09/06/17 09/06/17 Unknown History Sodium Bicarbonate 1,300 mg PO BID 09/06/17 09/06/17 Unknown History amLODIPine 10 mg PO DAILY 09/06/17 09/06/17 Unknown History calcitrioL [Rocaltrol] 0.25 mcg PO DAILY 09/06/17 09/06/17 Unknown History carvediloL [Coreg] 25 mg PO BID 02/21/18 02/21/18 Unknown History cloNIDine [Catapres] 0.2 mg PO BID 09/06/17 09/06/17 Unknown History labetaloL [Labetalol 200mg TAB] 400 mg PO TID #90 tablet 09/08/17 Unknown Rx minoxidiL [Loniten] 5 mg PO BID #60 tablet 09/08/17 Unknown Rx Ondansetron [Zofran Odt] 4 mg PO Q6HR PRN #20 tab.rapdis 03/26/21 Unknown Rx Review of Systems All systems: negative Exam - Constitutional Vitals: Temp Pulse Resp BP Pulse Ox 98 F 92 H 16 126/51 95 05/12/21 07:55 05/12/21 07:55 05/12/21 07:55 05/12/21 07:55 05/12/21 08:14 General appearance: Present: no acute distress, well-nourished - EENT Eyes: Present: PERRL ENT: hearing intact, clear oral mucosa - Neck Neck: Present: supple, normal ROM - Respiratory Respiratory effort: normal Respiratory: bilateral: CTA - Cardiovascular Heart Sounds: Present: S1 & S2. Absent: rub, click - Extremities Extremities: pulses symmetrical, No edema Peripheral Pulses: within normal limits - Abdominal General gastrointestinal: Present: soft, non-tender, non-distended, normal bowel sounds Male genitourinary: Present: normal - Integumentary Integumentary: Present: clear, warm, dry - Musculoskeletal Musculoskeletal: gait normal, strength equal bilaterally - Psychiatric Psychiatric: appropriate mood/affect, intact judgment & insight - Neurologic Neurologic: CNII-XII intact, moves all extremities HEART Score - HEART Score Troponin: Troponin T 0.083 ng/mL (0.00-0.029) H 05/12/21 08:16 Results - Labs CBC & Chem 7: 05/12/21 08:16 05/12/21 08:16 Labs: Laboratory Last Values WBC 6.1 K/mm3 (4.5-11.0) 05/12/21 08:16 RBC 2.97 M/mm3 (3.65-5.03) L 05/12/21 08:16 Hgb 9.2 gm/dl (11.8-15.2) L 05/12/21 08:16 Hct 28.3 % (35.5-45.6) L 05/12/21 08:16 MCV 95 fl (84-94) H 05/12/21 08:16 MCH 31 pg (28-32) 05/12/21 08:16 MCHC 32 % (32-34) 05/12/21 08:16 RDW 14.6 % (13.2-15.2) 05/12/21 08:16 Plt Count 193 K/mm3 (140-440) 05/12/21 08:16 Lymph % (Auto) 12.7 % (13.4-35.0) L 05/12/21 08:16 Kimble % (Auto) 5.2 % (0.0-7.3) 05/12/21 08:16 Eos % (Auto) 2.8 % (0.0-4.3) 05/12/21 08:16 Baso % (Auto) 0.8 % (0.0-1.8) 05/12/21 08:16 Lymph # (Auto) 0.8 K/mm3 (1.2-5.4) L 05/12/21 08:16 Kimble # (Auto) 0.3 K/mm3 (0.0-0.8) 05/12/21 08:16 Eos # (Auto) 0.2 K/mm3 (0.0-0.4) 05/12/21 08:16 Baso # (Auto) 0.0 K/mm3 (0.0-0.1) 05/12/21 08:16 Seg Neutrophils % 78.5 % (40.0-70.0) H 05/12/21 08:16 Seg Neutrophils # 4.8 K/mm3 (1.8-7.7) 05/12/21 08:16 PT 14.6 Sec. (12.2-14.9) 05/12/21 08:16 INR 1.03 (0.87-1.13) 05/12/21 08:16 ABG pH 7.510 pH Units (7.350-7.450) H 05/12/21 08:30 ABG pCO2 35.5 mm Hg 05/12/21 08:30 ABG pO2 44.7 mm Hg (80.0-90.0) L 05/12/21 08:30 ABG HCO3 27.7 mmol/L (20.0-26.0) H 05/12/21 08:30 ABG O2 Saturation 86.1 % (95.0-99.0) L 05/12/21 08:30 ABG O2 Content 10.1 (0.0-44) 05/12/21 08:30 ABG Base Excess 4.5 mmol/L (-2.0-3.0) H 05/12/21 08:30 ABG Hemoglobin 8.6 gm/dl (14.0-18.0) L 05/12/21 08:30 ABG Carboxyhemoglobin 2.4 % (0.0-5.0) 05/12/21 08:30 ABG Methemoglobin 0.4 % (0.0-1.5) 05/12/21 08:30 Oxyhemoglobin 83.7 % (95.0-99.0) L 05/12/21 08:30 FiO2 21 % 05/12/21 08:30 Sodium 143 mmol/L (137-145) 05/12/21 08:16 Potassium 4.9 mmol/L (3.6-5.0) 05/12/21 08:16 Chloride 98.9 mmol/L (98-107) 05/12/21 08:16 Carbon Dioxide 25 mmol/L (22-30) 05/12/21 08:16 Anion Gap 24 mmol/L 05/12/21 08:16 BUN 61 mg/dL (9-20) H 05/12/21 08:16 Creatinine 13.3 mg/dL (0.8-1.3) H 05/12/21 08:16 Estimated GFR 5 ml/min 05/12/21 08:16 BUN/Creatinine Ratio 5 % 05/12/21 08:16 Glucose 143 mg/dL (75-100) H 05/12/21 08:16 Calcium 8.9 mg/dL (8.4-10.2) 05/12/21 08:16 Total Creatine Kinase 308 units/L (55-170) H 05/12/21 08:16 CK-MB (CK-2) 1.9 ng/mL (0.0-4.0) 05/12/21 08:16 CK-MB (CK-2) Rel Index 0.6 (0-4) 05/12/21 08:16 Troponin T 0.083 ng/mL (0.00-0.029) H 05/12/21 08:16 Triglycerides 120 mg/dL (2-149) 05/12/21 08:16 Cholesterol 193 mg/dL (50-199) 05/12/21 08:16 LDL Cholesterol Direct 89 mg/dL (50-130) 05/12/21 08:16 HDL Cholesterol 78 mg/dL (40-59) H 05/12/21 08:16 Cholesterol/HDL Ratio 2.47 % 05/12/21 08:16 Assessment and Plan Assessment and plan: Acute hypoxic respiratory failure Volume overload ESRD. Missed HD Accelerated hypertension. 05/12/2021. Patient's respiratory failure is likely secondary to volume overload from missed hemodialysis. We will consult nephrology to initiate hemodialysis. Patient will resume home medications for hypertension. ER physician initiated PUI protocol. However, patient currently afebrile, no leukopenia and chest x-ray suggestive of volume overload rather than patchy opacities. We will follow-up Covid testing. Continue O2 to maintain saturations greater than 92%.
[2021-05-12] MEDS ORDERED: ACETAMINOPHEN 325 MG TAB PO PRN (11:30)
--- NOTE | 2021-05-12 11:32 | Consultation ---
History of Present Illness - Reason for Consult Consult date: 05/12/21 end stage renal disease - History of Present Illness This is a 26 year-old man with ESRD who presents for shortness of breath, HTN Patient usually dialyzes MWF at [facility]. Last HD 05/10. Denies any recent issues with HD, including dizziness, lightheadedness, cramping, chest pain on HD. Came to HD this AM, noted to have BP >200/100 with blurry vision, sent to ED as BP did not improve with clonidine Currently, patient denies any access issues, nausea, vomiting, headaches. Does have dyspnea, edema Past History Past Medical History: ESRD, hypertension Past Surgical History: No surgical history Social history: no significant social history Family history: no significant family history Medications and Allergies Allergies Allergy/AdvReac Type Severity Reaction Status Date / Time No Known Allergies Allergy Unverified 09/06/17 10:57 Home Medications Medication Instructions Recorded Confirmed Last Taken Type B Complex 11/Folic/C/Biot/Zinc 1 each PO DAILY 09/06/17 09/06/17 Unknown History [Dialyvite with Zinc Tablet] Calcium Acetate [Phoslo] 1,334 mg PO TID 09/06/17 09/06/17 Unknown History Docusate Sodium [Colace CAP] 100 mg PO DAILY 09/06/17 09/06/17 Unknown History Ergocalciferol [Vitamin D2] 1 cap PO QWEEK 09/06/17 09/06/17 Unknown History Omeprazole Magnesium [PriLOSEC Otc] 40 mg PO QHS 09/06/17 09/06/17 Unknown History Ondansetron [Zofran TAB] 4 mg PO Q8HR PRN 09/06/17 09/06/17 Unknown History Sodium Bicarbonate 1,300 mg PO BID 09/06/17 09/06/17 Unknown History amLODIPine 10 mg PO DAILY 09/06/17 09/06/17 Unknown History calcitrioL [Rocaltrol] 0.25 mcg PO DAILY 09/06/17 09/06/17 Unknown History carvediloL [Coreg] 25 mg PO BID 09/06/17 09/06/17 Unknown History cloNIDine [Catapres] 0.2 mg PO BID 09/06/17 09/06/17 Unknown History labetaloL [Labetalol 200mg TAB] 400 mg PO TID #90 tablet 09/08/17 Unknown Rx minoxidiL [Loniten] 5 mg PO BID #60 tablet 09/08/17 Unknown Rx Ondansetron [Zofran Odt] 4 mg PO Q6HR PRN #20 tab.rapdis 03/26/21 Unknown Rx Active Meds: Active Medications Acetaminophen (Acetaminophen 325 Mg Tab) 650 mg PO Q4H PRN PRN Reason: Pain MILD(1-3)/Fever >100.5/[place] Hydrocodone Bitart/Acetaminophen (Hydrocodone/Acetaminophen 5-325 Mg Tab) 2 each PO Q6H PRN PRN Reason: Pain, Moderate (4-6) Amlodipine Besylate (Amlodipine 10 Mg Tab) 10 mg PO DAILY [facility] Calcitriol (Calcitriol 0.25 Mcg Cap) 0.25 mcg PO DAILY [facility] Calcium Acetate (Calcium Acetate 667 Mg Cap) 1,334 mg PO TID [facility] Carvedilol (Carvedilol 25 Mg Tab) 25 mg PO BID [facility] Clonidine HCl (Clonidine 0.2 Mg Tab) 0.2 mg PO BID [facility] Docusate Sodium (Docusate Sodium 100 Mg Cap) 100 mg PO DAILY [facility] Ergocalciferol (Ergocalciferol (Vit D2) 50,000 Unit Cap) unit PO QWEEK [facility] Heparin Sodium (Porcine) (Heparin 5,000 Unit/1 Ml Vial) 5,000 unit SUB-Q Q12HR [facility] Labetalol HCl (Labetalol 200 Mg Tab) 400 mg PO TID [facility] Minoxidil (Minoxidil 2.5 Mg Tab) 5 mg PO BID [facility] Miscellaneous Medication (B Complex 11/Folic/C/Biot/Zinc [Dialyvite With Zinc Tablet]) 1 each PO DAILY [facility] Miscellaneous Medication (Omeprazole Magnesium [Prilosec Otc]) 40 mg PO QHS [facility] Morphine Sulfate (Morphine 2 Mg/1 Ml Inj) 2 mg IV Q4H PRN PRN Reason: Pain , Severe (7-10) Ondansetron HCl (Ondansetron 4 Mg/2 Ml Inj) 4 mg IV Q8HR PRN PRN Reason: Nausea And Vomiting Ondansetron HCl (Ondansetron 4 Mg Odt Tab) 4 mg PO Q6HR PRN PRN Reason: Nausea And Vomiting Sodium Bicarbonate (Sodium Bicarbonate 650 Mg Tab) 1,300 mg PO BID [facility] Sodium Chloride (Sodium Chloride 0.9% 10 Ml Flush Syringe) 10 ml IV BID [place] Sodium Chloride (Sodium Chloride 0.9% 10 Ml Flush Syringe) 10 ml IV PRN PRN PRN Reason: LINE FLUSH Review of Systems All systems: negative (dyspnea, edema) Exam - Vital Signs Vital signs: Vital Signs Temp Pulse Resp BP Pulse Ox 98 F 92 H 16 126/51 86 05/12/21 07:55 05/12/21 07:55 05/12/21 07:55 05/12/21 07:55 05/12/21 07:55 - Physical Exam Narrative exam: Constitutional: no acute distress Head: NC/AT Neck: supple Lungs: clear to auscultation CV: RRR, no M/R/G Abdomen: soft, non-tender, bowel sounds present Back: nontender Extremities: no edema, pulses WNL Skin: intact Neuro: no focal deficits, alert and oriented x4 Results - Lab Results 05/12/21 08:16 05/12/21 08:16 Most recent lab results ABG pH 7.510 pH Units (7.350-7.450) H 05/12/21 08:30 ABG pCO2 35.5 mm Hg 05/12/21 08:30 ABG pO2 44.7 mm Hg (80.0-90.0) L 05/12/21 08:30 ABG HCO3 27.7 mmol/L (20.0-26.0) H 05/12/21 08:30 ABG O2 Saturation 86.1 % (95.0-99.0) L 05/12/21 08:30 Calcium 8.9 mg/dL (8.4-10.2) 05/12/21 08:16 Assessment and Plan This is a 26 year old man who presents with dyspnea, HTN # ESRD: HD today for volume/BP control, toxin/electrolyte clearance - daily labs - renally dose meds - avoid nephrotoxins - renal diet - verbal consent obtained for HD # Anemia: last hemoglobin 9.2, ESAs with HD prn # HTN: UF as tolerated. BP stable now. Suspect UF will help with respiratory issues, COVID negative # Secondary Hyperparathyroidism: continue home binders as needed
[2021-05-12] MEDS ORDERED: HYDROcodone/ACETAMINOPHEN 5-325 MG TAB PO PRN (12:00)
[2021-05-12] MEDS ORDERED: MORPHINE 2 MG/1 ML INJ IV PRN (12:00)
[2021-05-12] MEDS ORDERED: ONDANSETRON 4 MG ODT TAB PO PRN (12:00)
[2021-05-12] MEDS ORDERED: SODIUM CHLORIDE 0.9% 100 ML IV PRN (12:00)
[2021-05-12] MEDS ORDERED: ONDANSETRON 4 MG/2 ML INJ IV PRN (14:00)
[2021-05-12 14:14] LABS: Hepatitis C Virus Antibody Non-Reactive (NonReactive)
[2021-05-12 14:26] LABS: Hepatitis B Surface Antigen Nonreactive (Negative)
[2021-05-12] MEDS: CALCIUM ACETATE 667 MG CAP PO SCH (15:18)
--- NOTE | 2021-05-12 17:50 | Electrocardiograph Report ---
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
[2021-05-12] MEDS ORDERED: PANTOPRAZOLE 40 MG TAB PO SCH (22:00)
[2021-05-12] MEDS ORDERED: NON-FORMULARY EACH (Omeprazole Magnesium [Prilosec Otc] 20 MG Tablet.Dr) PO SCH (22:00)
[2021-05-12] MEDS: MINOXIDIL 2.5 MG TAB PO SCH (22:50)
[2021-05-12] MEDS: SODIUM BICARBONATE 650 MG TAB PO SCH (22:50)
[2021-05-12] MEDS: cloNIDine 0.2 MG TAB PO SCH (22:51)
[2021-05-12] MEDS: carvediloL 25 MG TAB PO SCH (22:51)
[2021-05-12] MEDS: HEPARIN 5,000 UNIT/1 ML VIAL SUB-Q SCH (22:51)
[2021-05-13 06:23] LABS: Basophils # (Auto) 0.1 K/mm3 (0.0-0.1); Basophils % (Auto) 1.8 % (0.0-1.8); Eosinophils # (Auto) 0.4 K/mm3 (0.0-0.4); Eosinophils % (Auto) 8.1 % (0.0-4.3); Hematocrit 25.9 % (35.5-45.6); Hemoglobin 8.7 gm/dl (11.8-15.2); Lymphocytes # (Auto) 1.3 K/mm3 (1.2-5.4); Lymphocytes % (Auto) 29.3 % (13.4-35.0); Mean Corpuscular HGB Conc 34 % (32-34); Mean Corpuscular Volume 95 fl (84-94); Monocytes # (Auto) 0.3 K/mm3 (0.0-0.8); Monocytes % (Auto) 7.6 % (0.0-7.3); Platelet Count 187 K/mm3 (140-440); Red Blood Count 2.72 M/mm3 (3.65-5.03); Red Cell Distribution Width 14.4 % (13.2-15.2)
[2021-05-13 06:41] LABS: Calcium 8.5 mg/dL (8.4-10.2)
--- NOTE | 2021-05-13 08:35 | Discharge Summary ---
Providers - Providers Date of Admission: 05/12/21 09:19 Date of discharge: 05/13/21 Attending physician: MARIA DEL CARMEN MARTINEZ 05/12/21 10:52 Consult to Physician [CONS] Routine Comment: Consulting Provider: HOWARD BALL Physician Instructions: Reason For Exam: ESRD Primary care physician: FIELD AUTO APPRAISER Hospitalization Reason for admission: missed HD and accel htn Condition: Fair Hospital course: This is a 26 year-old man with ESRD who presented through the emergency department with complaints of shortness of breath and accelerated hypertension. Patient usually dialyzes MWF at [facility]. Last HD 05/10. Denied any recent issues with HD, including dizziness, lightheadedness, cramping, chest pain on HD. On the day prior to admission patient reported to dialysis and was noted to have BP >200/100 with blurry vision, sent to ED as BP did not improve with clonidine. Patient noted to be hypoxic in the ED with saturations 86% on room air. The patient was admitted with diagnosis of acute hypoxic respiratory failure secondary to volume overload, ESRD with missed hemodialysis and accelerated hypertension. Nephrology was consulted and initiated hemodialysis. Home medications for blood pressure were resumed and blood pressure stabilized. Patient now with saturations of 99% on room air. Patient is felt to receive maximal hospital benefit and will be discharged home. Dedicated discharge time 35 minutes Disposition: 01 HOME / SELF CARE / HOMELESS Final Discharge Diagnosis (Prints w/discharge instructions): Acute hypoxic respiratory failure, volume overload, ESRD with missed HD, accelerated hypertension Core Measure Documentation - Palliative Care Palliative Care/ Comfort Measures: Not Applicable - Core Measures Any of the following diagnoses?: none Exam - Constitutional Vitals: Temp Pulse Resp BP Pulse Ox 98.3 F 79 18 147/96 99 05/13/21 05:13 05/13/21 05:13 05/13/21 05:13 05/13/21 05:13 05/13/21 05:13 General appearance: Present: no acute distress, well-nourished - EENT Eyes: Present: PERRL ENT: hearing intact, clear oral mucosa - Neck Neck: Present: supple, normal ROM - Respiratory Respiratory effort: normal Respiratory: bilateral: CTA - Cardiovascular Heart Sounds: Present: S1 & S2. Absent: rub, click - Extremities Extremities: pulses symmetrical, No edema Peripheral Pulses: within normal limits - Abdominal General gastrointestinal: Present: soft, non-tender, non-distended, normal bowel sounds Male genitourinary: Present: normal - Integumentary Integumentary: Present: clear, warm, dry - Musculoskeletal Musculoskeletal: gait normal, strength equal bilaterally - Psychiatric Psychiatric: appropriate mood/affect, intact judgment & insight - Neurologic Neurologic: CNII-XII intact, moves all extremities Plan Activity: advance as tolerated Weight Bearing Status: Weight Bear as Tolerated Diet: renal Follow up with: MIGUEL BURNETT MD [Primary Care Provider] - 3-5 Days SELVIN MAKI MD [Staff Physician] - 7 Days Prescriptions: amLODIPine 10 mg PO DAILY #30 cloNIDine [Catapres] 0.2 mg PO BID #60 carvediloL [Coreg] 25 mg PO BID #60 labetaloL [Labetalol 200mg TAB] 400 mg PO TID #90 tablet minoxidiL [Loniten] 5 mg PO BID #60 tablet Calcium Acetate [Phoslo] 1,334 mg PO TID #90 cap calcitrioL [Rocaltrol] 0.25 mcg PO DAILY #30 cap Sodium Bicarbonate 1,300 mg PO BID #60 Ergocalciferol [Vitamin D2] 1 cap PO QWEEK #4 cap Ondansetron [Zofran ODT TAB] 4 mg PO Q6HR PRN #20 tab.rapdis PRN Reason: Nausea And Vomiting
--- NOTE | 2021-05-13 09:29 | Progress Note ---
Assessment and Plan This is a 26 year old man who presents with dyspnea, HTN # ESRD: s/p HD yesterday for volume/BP control, toxin/electrolyte clearance, no need for additional HD today, resume outpatient HD MWF - daily labs - renally dose meds - avoid nephrotoxins - renal diet - verbal consent obtained for HD - ok for discharge from renal standpoint # Anemia: last hemoglobin 9.2->8.7, ESAs with HD prn # HTN: UF as tolerated. BP stable now. Dyspnea improved s/p HD. COVID negative # Secondary Hyperparathyroidism: continue home binders as needed Subjective Date of service: 05/13/21 Interval history: Feeling back to baseline today, no dyspnea/edema to report. No issues with HD yesterday Objective - Exam Narrative Exam: Constitutional: no acute distress Head: NC/AT Neck: supple Lungs: clear to auscultation CV: RRR, no M/R/G Abdomen: soft, non-tender, bowel sounds present Back: nontender Extremities: no edema, pulses WNL Skin: intact Neuro: no focal deficits, alert and oriented x4 - Vital Signs Vital signs: Vital Signs - 12hr 05/12/21 05/12/21 05/12/21 22:48 22:51 23:02 Temperature 98.4 F Pulse Rate 93 H 94 H Respiratory 18 Rate Blood Pressure 154/94 Blood Pressure 154/94 [Right] O2 Sat by Pulse 94 Oximetry 05/12/21 05/13/21 23:26 05:13 Temperature 98.3 F Pulse Rate 79 Respiratory 18 Rate Blood Pressure 147/96 Blood Pressure [Right] O2 Sat by Pulse 95 99 Oximetry - Lab 05/13/21 05:45 05/13/21 05:45 Most recent lab results ABG pH 7.510 pH Units (7.350-7.450) H 05/12/21 08:30 ABG pCO2 35.5 mm Hg 05/12/21 08:30 ABG pO2 44.7 mm Hg (80.0-90.0) L 05/12/21 08:30 ABG HCO3 27.7 mmol/L (20.0-26.0) H 05/12/21 08:30 ABG O2 Saturation 86.1 % (95.0-99.0) L 05/12/21 08:30 Calcium 8.5 mg/dL (8.4-10.2) 05/13/21 05:45 Medications & Allergies - Medications Allergies/Adverse Reactions: Allergies No Known Allergies Allergy (Unverified 09/06/17 10:57) Home Medications: Home Medications Medication Instructions Recorded Confirmed Last Taken Type B Complex 11/Folic/C/Biot/Zinc 1 each PO DAILY 09/06/17 09/06/17 Unknown History [Dialyvite with Zinc Tablet] Docusate Sodium [Colace CAP] 100 mg PO DAILY 09/06/17 09/06/17 Unknown History Omeprazole Magnesium [PriLOSEC Otc] 40 mg PO QHS 09/06/17 09/06/17 Unknown History Ondansetron [Zofran TAB] 4 mg PO Q8HR PRN 09/06/17 09/06/17 Unknown History Calcium Acetate [Phoslo] 1,334 mg PO TID #90 cap 05/13/21 Unknown Rx Ergocalciferol [Vitamin D2] 1 cap PO QWEEK #4 cap 05/13/21 Unknown Rx Ondansetron [Zofran ODT TAB] 4 mg PO Q6HR PRN #20 tab.rapdis 05/13/21 Unknown Rx Sodium Bicarbonate 1,300 mg PO BID #60 05/13/21 Unknown Rx amLODIPine 10 mg PO DAILY #30 05/13/21 Unknown Rx calcitrioL [Rocaltrol] 0.25 mcg PO DAILY #30 cap 05/13/21 Unknown Rx carvediloL [Coreg] 25 mg PO BID #60 05/13/21 Unknown Rx cloNIDine [Catapres] 0.2 mg PO BID #60 05/13/21 Unknown Rx labetaloL [Labetalol 200mg TAB] 400 mg PO TID #90 tablet 05/13/21 Unknown Rx minoxidiL [Loniten] 5 mg PO BID #60 tablet 05/13/21 Unknown Rx Active Medications: Generic Name Dose Route Start Last Admin Trade Name Freq PRN Reason Stop Dose Admin Acetaminophen 650 mg 05/12/21 11:30 Acetaminophen 325 Mg Tab PO Q4H PRN Pain MILD(1-3)/Fever >100.5/DELAROSA Hydrocodone Bitart/Acetaminophen 2 each 05/12/21 12:00 Hydrocodone/Acetaminophen 5-325 Mg Tab PO Q6H PRN Pain, Moderate (4-6) Amlodipine Besylate 10 mg 05/13/21 10:00 Amlodipine 10 Mg Tab PO DAILY [facility] Calcitriol 0.25 mcg 05/13/21 10:00 Calcitriol 0.25 Mcg Cap PO DAILY [facility] Calcium Acetate 1,334 mg 05/12/21 14:00 05/12/21 15:18 Calcium Acetate 667 Mg Cap PO 1,334 mg TID TASHIA Administration Carvedilol 25 mg 05/12/21 22:00 05/12/21 22:51 Carvedilol 25 Mg Tab PO 25 mg BID [facility] Administration Clonidine HCl 0.2 mg 05/12/21 22:00 05/12/21 22:51 Clonidine 0.2 Mg Tab PO 0.2 mg BID [facility] Administration Docusate Sodium 100 mg 05/13/21 10:00 Docusate Sodium 100 Mg Cap PO DAILY [facility] Ergocalciferol 50,000 unit 05/19/21 10:00 Ergocalciferol (Vit D2) 50,000 Unit Cap PO [place]@1000 [facility] Heparin Sodium (Porcine) 5,000 unit 05/12/21 22:00 05/12/21 22:51 Heparin 5,000 Unit/1 Ml Vial SUB-Q 5,000 unit Q12HR [facility] Administration Sodium Chloride 100 mls @ 999 mls/hr 05/12/21 12:00 Nacl 0.9% IV BRADLEY PRN Hypotension Labetalol HCl 400 mg 05/12/21 14:00 05/12/21 15:17 Labetalol 200 Mg Tab PO 400 mg TID [facility] Administration Minoxidil 5 mg 05/12/21 22:00 05/12/21 22:50 Minoxidil 2.5 Mg Tab PO 5 mg BID [facility] Administration Morphine Sulfate 2 mg 05/12/21 12:00 Morphine 2 Mg/1 Ml Inj IV Q4H PRN Pain , Severe (7-10) Ondansetron HCl 4 mg 05/12/21 14:00 Ondansetron 4 Mg/2 Ml Inj IV Q8HR PRN Nausea And Vomiting Ondansetron HCl 4 mg 05/12/21 12:00 Ondansetron 4 Mg Odt Tab PO Q6HR PRN Nausea And Vomiting Pantoprazole Sodium 40 mg 05/12/21 22:00 05/12/21 22:51 Pantoprazole 40 Mg Tab PO 40 mg QHS [facility] Administration Sodium Bicarbonate 1,300 mg 05/12/21 22:00 05/12/21 22:50 Sodium Bicarbonate 650 Mg Tab PO 1,300 mg BID TASHIA Administration Sodium Chloride 10 ml 05/12/21 22:00 05/12/21 22:53 Sodium Chloride 0.9% 10 Ml Flush Syringe IV 10 ml BID TASHIA Administration Sodium Chloride 10 ml 05/12/21 11:30 Sodium Chloride 0.9% 10 Ml Flush Syringe IV PRN PRN LINE FLUSH
[2021-05-13] MEDS ORDERED: DOCUSATE SODIUM 100 MG CAP PO SCH (10:00)
[2021-05-13] MEDS ORDERED: BIOT PO SCH (10:00)
[2021-05-13] MEDS ORDERED: CALCITRIOL 0.25 MCG CAP PO SCH (10:00)
[2021-05-13] MEDS ORDERED: ZINC PO SCH (10:00)
[2021-05-13] MEDS ORDERED: FOLIC ACID/VIT B COMP W-C 1 MG (RENAL CAPS) PO SCH (10:00)
[2021-05-13] MEDS ORDERED: amLODIPine 10 MG TAB PO SCH (10:00)
[2021-05-13] MEDS ORDERED: B COMPLEX PO SCH (10:00)
[2021-05-13] MEDS ORDERED: FOLIC PO SCH (10:00)
[2021-05-13] MEDS ORDERED: [UNRECOGNIZED DRUG - OTHER] PO SCH (10:00)
[2021-05-13] MEDS: CALCIUM ACETATE 667 MG CAP PO SCH ×3 (10:15→13:14)
[2021-05-13] MEDS: SODIUM BICARBONATE 650 MG TAB PO SCH (10:15)
[2021-05-13] MEDS: MINOXIDIL 2.5 MG TAB PO SCH (10:15)
[2021-05-13] MEDS: carvediloL 25 MG TAB PO SCH (10:16)
[2021-05-13] MEDS: cloNIDine 0.2 MG TAB PO SCH (10:16)
[2021-05-13] MEDS: HEPARIN 5,000 UNIT/1 ML VIAL SUB-Q SCH (10:17)
[2021-05-13 13:14] VITALS: BP 117/54
[2021-05-19] MEDS ORDERED: ERGOCALCIFEROL (VIT D2) 50,000 UNIT CAP PO SCH (10:00)
== END 2021-05-13 14:00 | disposition home or self-care (01) | DRG 640 ==
LOC: ED 07:47 → 3A 09:19
PROVIDERS: ADMIT Hospitalist; ATTEND Hospitalist
PROC: 4A033R1 Measurement of Arterial Saturation, Peripheral, Percutaneous Approach (ICD-10-PCS; principal; 2021-05-12)
PROC: 5A1D70Z Performance of Urinary Filtration, Intermittent, Less than 6 Hours Per Day (ICD-10-PCS; 2021-05-12)
DX: E87.70 Fluid overload, unspecified (principal); J96.01 Acute respiratory failure with hypoxia; N18.6 End stage renal disease; I12.0 Hypertensive chronic kidney disease with stage 5 chronic kidney disease or end stage renal disease; N25.81 Secondary hyperparathyroidism of renal origin; Z20.822 Contact with and (suspected) exposure to COVID-19; D64.9 Anemia, unspecified; I10 Essential (primary) hypertension
CPT/HCPCS: 36415; 70450; 71045; 80048; 80061; 80074; 82550; 82553; 82803; 84484; 85025; 85610; 87040; 93005; G0378; J0456; J0696; J1644; U0003